=== PATIENT | female | born 1990 | race Two or more races ===

== ENCOUNTER 2022-09-12 08:17 | Emergency (ER) | payer OTHER ==
[~2022-09-12] VITALS: Ht 157.5 cm; Wt 58.1 kg
[2022-09-12] MEDS ORDERED: AZO STANDARD95 MG (08:29)
[2022-09-12] MEDS ORDERED: VALTREX1000 MG (08:29)
[2022-09-12] MEDS ORDERED: BACTRIM DS TAB1 EACH PO (10:33)
== END 2022-09-12 11:22 | disposition home or self-care (01) ==
LOC: ER 08:17
DX: N39.0 Urinary tract infection, site not specified (principal); Z88.8 Allergy status to other drugs, medicaments and biological substances